=== PATIENT | male | born 1990 | race Caucasian/White ===

== ENCOUNTER 2022-05-26 05:09 | Inpatient (IN) | payer OTHER, SELFPAY ==
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
[2022-05-26 19:55] VITALS: BP 123/65; PULSE 72; TEMP 37.1
[2022-05-26] MEDS: hydrOXYzine HCL 25 MG TABLET PO (20:02)
[2022-05-26] MEDS: Prazosin HCL 1 MG CAPSULE 2 MG PO (20:55)
[2022-05-27] MEDS: buPROPion HCl XL 150 MG TAB.ER.24H PO (08:33)
[2022-05-27] MEDS: Escitalopram Oxalate 20 MG TABLET PO (08:33)
[2022-05-27] MEDS: Amphetamine Mixed Salts 10 MG TABLET 15 MG PO (08:34)
[2022-05-27 08:36] VITALS: BP 115/61; PULSE 70; RESP 18; TEMP 36.3; O2SAT 98
[2022-05-27 10:02] LABS: Estimated Average Glucose 105 mg/dL; Hemoglobin A1c % 5.3 %
[2022-05-27 10:49] LABS: Cholesterol 141 mg/dL; HDL Cholesterol 27 mg/dL; LDL Cholesterol Calculated 95 mg/dl; Magnesium 2.1 mg/dL (1.6-2.6); Thyroid Stimulating Hormone 0.49 uIU/mL (0.32-4.0); Triglycerides 99 mg/dL
[2022-05-27 11:01] LABS: Folate 6.4 ng/mL (> or = 4.0); Vitamin B12 598 pg/mL (200-900)
[2022-05-27 11:30] LABS: Free T4 (Free Thyroxine) 0.85 ng/dL (0.71-1.85)
[2022-05-27 16:50] VITALS: BP 139/79; PULSE 102; RESP 18; TEMP 36.2; O2SAT 100
--- NOTE | 2022-05-27 17:55 | HO.PSYCHPN ---
Subjective Subjective Date of Service: 05/27/22 Reason For Visit: PTSD Subjective Notes: Conditional Voluntary Healthcare Proxy: No Guardianship: No Medical Problems Affecting Mental Status: No Interim History: Raji is well organized with a list of items he would like to work on including -stepping outside of his comfort zone, -communication,-identification of feels which trigger thoughts, -new coping skills and mechanisms, - safety awareness and body language, -finding an out pt team, -endocrine HRT, --- negative self-talk, -positive self talk, -self-esteem, -grief,-jaw clenching, -finding the root of his intense emotions, -inner child healing, acceptance and empathy. Discussion of gender identity-discussed referral to [facility] for HRT and primary care along with psych care as he does not have those resources in his area-discussed with his team. Discussion of gender identity and team reaction to him-Expressed himself clearly and fully. Expressed concerns about how this was managed, felt triggered by team and anger at team response. Discussed nightmares of father and mgt of these. Discussed sx of jaw clench-this started after Lexapro-end of the day it occurs-? SE of SSRI Medication Compliance: Yes Side effects from medications: Yes (?Jaw clenching) Attending Groups: Yes Review of Systems Medical Review of Systems: unchanged Mental Status Exam Mental Status Exam Patient Appearance: Appropriate Patient Orientation: Person, Place, Time and Situation Level of Consciousness: Alert Patient Behavior: Appropriate, Talkative, Cooperative and Good Eye Contact Mood Description: Depressed and Anxious Affect Description: Flat Patient Cognition Impaired: No Ability to Follow Directions: Good Speech Pattern: Spontaneous Speech Memory Description: Intact Hallucinations: None Delusions: Not Present Perceptual Disturbances: Depersonalization and Derealization Thought Process: Intact and Goal Oriented Thought Content: positive for Intact and positive for Goal Oriented Depressive Symptoms: Increased Anxiety Judgement: Good Diagnostics Vital Signs (24Hr): Vital Signs - 24 hr 05/26/22 19:55 05/27/22 08:36 05/27/22 16:50 Temperature 98.8 F 97.3 F 97.2 F Pulse Rate 72 70 102 H Respiratory Rate 18 18 Blood Pressure 123/65 115/61 139/79 Pulse Oximetry 98 100 Oxygen Delivery Method Room Air Room Air Labs Labs: Laboratory Results - last 48 hr 05/27/22 05/27/22 05/27/22 08:25 08:25 08:25 Estimat Average Glucose 105 Hemoglobin A1c % 5.3 Magnesium 2.1 Triglycerides 99 Cholesterol 141 LDL Cholesterol, Calc 95 HDL Cholesterol 27 Vitamin B12 598 Folate 6.4 TSH 0.49 Free T4 0.85 Medications Medications Current Medications Acetaminophen (Acetaminophen 325 Mg Tablet) 650 mg PO Q6H PRN PRN Reason: Headache/Pain Mild Scale (1-3) Al Hydroxide/Mg Hydroxide (Magnesium Hydrox/Alum Hydrox 30 Ml Oral.Susp) 30 ml PO Q6H PRN PRN Reason: Heartburn/Nausea Amphetamine/Dextroamphetamine (Amphetamine Mixed Salts 10 Mg Tablet) 15 mg PO DAILY [facility] Last Admin: 05/27/22 08:34 Dose: 15 mg Bupropion HCl (Bupropion Hcl Xl 150 Mg Tab.Er.24h) 150 mg PO DAILY [facility] Last Admin: 05/27/22 08:33 Dose: 150 mg Escitalopram Oxalate (Escitalopram Oxalate 20 Mg Tablet) 20 mg PO DAILY [facility] Last Admin: 05/27/22 08:33 Dose: 20 mg Hydroxyzine HCl (Hydroxyzine Hcl 25 Mg Tablet) 25 mg PO Q6H PRN PRN Reason: Anxiety Last Admin: 05/26/22 20:02 Dose: 25 mg Magnesium Hydroxide (Milk Of Magnesia 30 Ml Oral.Susp) 30 ml PO DAILY PRN PRN Reason: Constipation Prazosin HCl (Prazosin Hcl 1 Mg Capsule) 2 mg PO BEDTIME [facility]; Protocol Last Admin: 05/26/22 20:55 Dose: 2 mg Trazodone HCl (Trazodone Hcl 50 Mg Tablet) 50 mg PO BEDTIME PRN PRN Reason: Insomnia Allergies Allergies Allergy/AdvReac Type Severity Reaction Status Date / Time No Known Allergies Allergy Verified 05/26/22 06:17 Assessment & Plan Assessment & Plan (1) ADHD: Status: Acute Code(s): F90.9 - Attention-deficit hyperactivity disorder, unspecified type (2) Post traumatic stress disorder (PTSD): Status: Acute Code(s): F43.10 - Post-traumatic stress disorder, unspecified Plan Jb is a 31 y.o. male who carries a dx of PTSD, ADHD. He presented to the [place] ED with suicidal ideation and a plan to hang himself, increased depression. Has multiple psychosocial stressors, recently moved from [place], has housing instability. Extensive trauma hx. Discloses hx of suicide attempts in adolescence. Has chronically poor sleep due to nightmares, flashbacks in the day. Plan: Continue adderall 15 mg daily, lexapro 20 mg daily (recently increased x 5 days, will monitor for benefit). Will start wellbutrin XL 150 mg daily as pt?s OP provider prescribed this last but he has not had a chance to trial it and is still interested to see if it helps with depression. Will start Prazosin 2 mg HS for chronic PTSD related nightmares. Q15 min safety checks, CV Monitor response to medications. Monitor for safety in the milieu. Discharge on stabilization. Patient seen. Chart reviewed. Discussed with team. Obtain collateral contact info?as needed 05/27/22 Benztropine prn for jaw clenching sx Seroquel prn for PTSD sx exacerbation I spent minutes with the patient and/or on the patient floor today, greater than?50% of which was spent counseling/coordinating care. Patient educated on: medication risk/benefits and therapeutic strategies Informed Consent: understands and further education needed Reason for contiued inpatient stay Substantial Risk for: inability to function and rapid decompensation
[2022-05-27] MEDS: Prazosin HCL 1 MG CAPSULE 2 MG PO (20:33)
[2022-05-27] MEDS: traZODone HCL 50 MG TABLET PO (20:33)
[2022-05-28] MEDS: buPROPion HCl XL 150 MG TAB.ER.24H PO (08:46)
[2022-05-28] MEDS: Amphetamine Mixed Salts 10 MG TABLET 15 MG PO (08:47)
[2022-05-28] MEDS: Escitalopram Oxalate 20 MG TABLET PO (09:18)
[2022-05-28 13:00] VITALS: BP 129/69; PULSE 130; TEMP 36.6
[2022-05-28] MEDS: Benztropine Mesylate 0.5 MG TABLET PO (14:54)
--- NOTE | 2022-05-28 16:25 | P.PNPSI_ITS ---
Subjective Subjective Date of Service: 05/28/22 Reason For Visit: PTSD Subjective Notes: Conditional Voluntary Healthcare Proxy: No Guardianship: No Medical Problems Affecting Mental Status: No Interim History: Spoke of his family today, relationship (5 years with partner this Wednesday), parenting (13 yo calls him on the unit on a regular basis to talk of her day and share info about home, along with process her anxiety). Also, talked of the support his colleagues have given him and of feeling he is working while here on issues and making some progress. Medication Compliance: Yes Side effects from medications: No Attending Groups: Yes Review of Systems Acute medical concerns: No Medical Review of Systems: unchanged Mental Status Exam Mental Status Exam Patient Appearance: Appropriate Patient Orientation: Person, Place, Time and Situation Level of Consciousness: Alert Patient Behavior: Appropriate, Talkative, Cooperative and Good Eye Contact Mood Description: Depressed and Anxious Affect Description: Flat Patient Cognition Impaired: No Ability to Follow Directions: Good Speech Pattern: Spontaneous Speech Memory Description: Intact Hallucinations: None Delusions: Not Present Perceptual Disturbances: Depersonalization and Derealization Thought Process: Intact and Goal Oriented Thought Content: positive for Intact and positive for Goal Oriented Depressive Symptoms: Increased Anxiety Judgement: Good Diagnostics Vital Signs (24Hr): Vital Signs - 24 hr 05/27/22 16:50 05/28/22 13:00 Temperature 97.2 F 97.8 F Pulse Rate 102 H 130 H Respiratory Rate 18 Blood Pressure 139/79 129/69 Pulse Oximetry 100 Oxygen Delivery Method Room Air Labs Labs: Laboratory Results - last 48 hr 05/27/22 05/27/22 05/27/22 08:25 08:25 08:25 Estimat Average Glucose 105 Hemoglobin A1c % 5.3 Magnesium 2.1 Triglycerides 99 Cholesterol 141 LDL Cholesterol, Calc 95 HDL Cholesterol 27 Vitamin B12 598 Folate 6.4 TSH 0.49 Free T4 0.85 Medications Medications Current Medications Acetaminophen (Acetaminophen 325 Mg Tablet) 650 mg PO Q6H PRN PRN Reason: Headache/Pain Mild Scale (1-3) Al Hydroxide/Mg Hydroxide (Magnesium Hydrox/Alum Hydrox 30 Ml Oral.Susp) 30 ml PO Q6H PRN PRN Reason: Heartburn/Nausea Amphetamine/Dextroamphetamine (Amphetamine Mixed Salts 10 Mg Tablet) 15 mg PO DAILY [facility] Last Admin: 05/28/22 08:47 Dose: 15 mg Benztropine Mesylate (Benztropine Mesylate 0.5 Mg Tablet) 0.5 mg PO 0900,1500 [facility] Last Admin: 05/28/22 14:54 Dose: 0.5 mg Bupropion HCl (Bupropion Hcl Xl 150 Mg Tab.Er.24h) 150 mg PO DAILY [facility] Last Admin: 05/28/22 08:46 Dose: 150 mg Escitalopram Oxalate (Escitalopram Oxalate 20 Mg Tablet) 20 mg PO DAILY [facility] Last Admin: 05/28/22 09:18 Dose: 20 mg Hydroxyzine HCl (Hydroxyzine Hcl 25 Mg Tablet) 25 mg PO Q6H PRN PRN Reason: Anxiety Last Admin: 05/26/22 20:02 Dose: 25 mg Magnesium Hydroxide (Milk Of Magnesia 30 Ml Oral.Susp) 30 ml PO DAILY PRN PRN Reason: Constipation Melatonin (Melatonin 3 Mg Tablet) 3 mg PO BEDTIME PRN PRN Reason: insomnia Prazosin HCl (Prazosin Hcl 1 Mg Capsule) 2 mg PO BEDTIME [facility]; Protocol Last Admin: 05/27/22 20:33 Dose: 2 mg Quetiapine Fumarate (Quetiapine Fumarate 25 Mg Tablet) 25 mg PO BID [facility] Trazodone HCl (Trazodone Hcl 25 Mg Halftab) 25 mg PO BEDTIME PRN PRN Reason: Insomnia Allergies Allergies Allergy/AdvReac Type Severity Reaction Status Date / Time No Known Allergies Allergy Verified 05/26/22 06:17 Assessment & Plan Assessment & Plan (1) ADHD: Status: Acute Code(s): F90.9 - Attention-deficit hyperactivity disorder, unspecified type (2) Post traumatic stress disorder (PTSD): Status: Acute Code(s): F43.10 - Post-traumatic stress disorder, unspecified Plan Jb is a 31 y.o. male who carries a dx of PTSD, ADHD. He presented to the [facility] ED with suicidal ideation and a plan to hang himself, increased depression. Has multiple psychosocial stressors, recently moved from [place], has housing instability. Extensive trauma hx. Discloses hx of suicide attempts in adolescence. Has chronically poor sleep due to nightmares, flashbacks in the day. Plan: Continue adderall 15 mg daily, lexapro 20 mg daily (recently increased x 5 days, will monitor for benefit). Will start wellbutrin XL 150 mg daily as pt?s OP provider prescribed this last but he has not had a chance to trial it and is still interested to see if it helps with depression. Will start Prazosin 2 mg HS for chronic PTSD related nightmares. Q15 min safety checks, CV Monitor response to medications. Monitor for safety in the milieu. Discharge on stabilization. Patient seen. Chart reviewed. Discussed with team. Obtain collateral contact info?as needed 05/27/22 Benztropine prn for jaw clenching sx Seroquel prn for PTSD sx exacerbation 05/28/22 Seroquel changed to scheduled bid for trial for sx mgt-PTSD, Anxiety. I spent minutes with the patient and/or on the patient floor today, greater than?50% of which was spent counseling/coordinating care. Patient educated on: therapeutic strategies Informed Consent: understands Reason for contiued inpatient stay Substantial Risk for: rapid decompensation
[2022-05-28 18:00] VITALS: BP 122/78; PULSE 78; RESP 16; TEMP 36; O2SAT 98
[2022-05-28] MEDS: Prazosin HCL 1 MG CAPSULE 2 MG PO (19:27)
[2022-05-28] MEDS: QUEtiapine Fumarate 25 MG TABLET PO (19:27)
[2022-05-28] MEDS: Melatonin 3 MG TABLET PO (20:37)
[2022-05-29 06:00] VITALS: BP 129/70; PULSE 87; TEMP 37.3
[2022-05-29] MEDS: Amphetamine Mixed Salts 10 MG TABLET 15 MG PO (08:48)
[2022-05-29] MEDS: QUEtiapine Fumarate 25 MG TABLET PO ×2 (08:49→20:07)
[2022-05-29] MEDS: Escitalopram Oxalate 20 MG TABLET PO (08:49)
[2022-05-29] MEDS: Benztropine Mesylate 0.5 MG TABLET PO ×2 (08:49→14:02)
[2022-05-29] MEDS: buPROPion HCl XL 150 MG TAB.ER.24H PO (08:49)
--- NOTE | 2022-05-29 16:03 | HO.PSYCHPN ---
Subjective Subjective Date of Service: 05/29/22 Reason For Visit: PTSD Subjective Notes: Conditional Voluntary Healthcare Proxy: No Guardianship: No Medical Problems Affecting Mental Status: No Interim History: Reports feeling strange upon awakening-with a marked decrease in anxiety and depression-reports feeling improved. Slept with Seroquel. Wanting to keep dosage the same-may need to decrease. Fifth anniversary on 05/30. Medication Compliance: Yes Side effects from medications: No Attending Groups: No Review of Systems Acute medical concerns: No Medical Review of Systems: unchanged Mental Status Exam Mental Status Exam Patient Appearance: Appropriate Patient Orientation: Person, Place, Time and Situation Level of Consciousness: Alert Patient Behavior: Appropriate, Talkative, Cooperative and Good Eye Contact Mood Description: Depressed and Anxious Affect Description: Flat Patient Cognition Impaired: No Ability to Follow Directions: Good Speech Pattern: Spontaneous Speech Memory Description: Intact Hallucinations: None Delusions: Not Present Perceptual Disturbances: Depersonalization and Derealization Thought Process: Intact and Goal Oriented Thought Content: positive for Intact and positive for Goal Oriented Depressive Symptoms: Increased Anxiety Judgement: Good Diagnostics Vital Signs (24Hr): Vital Signs - 24 hr 05/28/22 18:00 05/29/22 06:00 Temperature 96.8 F 99.2 F Pulse Rate 78 87 Respiratory Rate 16 Blood Pressure 122/78 129/70 Pulse Oximetry 98 Oxygen Delivery Method Room Air Medications Medications Current Medications Acetaminophen (Acetaminophen 325 Mg Tablet) 650 mg PO Q6H PRN PRN Reason: Headache/Pain Mild Scale (1-3) Al Hydroxide/Mg Hydroxide (Magnesium Hydrox/Alum Hydrox 30 Ml Oral.Susp) 30 ml PO Q6H PRN PRN Reason: Heartburn/Nausea Amphetamine/Dextroamphetamine (Amphetamine Mixed Salts 10 Mg Tablet) 15 mg PO DAILY [facility] Last Admin: 05/29/22 08:48 Dose: 15 mg Benztropine Mesylate (Benztropine Mesylate 0.5 Mg Tablet) 0.5 mg PO 0900,1500 [facility] Last Admin: 05/29/22 14:02 Dose: 0.5 mg Bupropion HCl (Bupropion Hcl Xl 150 Mg Tab.Er.24h) 150 mg PO DAILY [facility] Last Admin: 05/29/22 08:49 Dose: 150 mg Escitalopram Oxalate (Escitalopram Oxalate 20 Mg Tablet) 20 mg PO DAILY [facility] Last Admin: 05/29/22 08:49 Dose: 20 mg Hydroxyzine HCl (Hydroxyzine Hcl 25 Mg Tablet) 25 mg PO Q6H PRN PRN Reason: Anxiety Last Admin: 05/26/22 20:02 Dose: 25 mg Magnesium Hydroxide (Milk Of Magnesia 30 Ml Oral.Susp) 30 ml PO DAILY PRN PRN Reason: Constipation Melatonin (Melatonin 3 Mg Tablet) 3 mg PO BEDTIME PRN PRN Reason: insomnia Last Admin: 05/28/22 20:37 Dose: 3 mg Prazosin HCl (Prazosin Hcl 1 Mg Capsule) 2 mg PO BEDTIME [facility]; Protocol Last Admin: 05/28/22 19:27 Dose: 2 mg Quetiapine Fumarate (Quetiapine Fumarate 25 Mg Tablet) 25 mg PO BID [facility] Last Admin: 05/29/22 08:49 Dose: 25 mg Trazodone HCl (Trazodone Hcl 25 Mg Halftab) 25 mg PO BEDTIME PRN PRN Reason: Insomnia Allergies Allergies Allergy/AdvReac Type Severity Reaction Status Date / Time No Known Allergies Allergy Verified 05/26/22 06:17 Assessment & Plan Assessment & Plan (1) ADHD: Status: Acute Code(s): F90.9 - Attention-deficit hyperactivity disorder, unspecified type (2) Post traumatic stress disorder (PTSD): Status: Acute Code(s): F43.10 - Post-traumatic stress disorder, unspecified Plan Jb is a 31 y.o. male who carries a dx of PTSD, ADHD. He presented to the [place] ED with suicidal ideation and a plan to hang himself, increased depression. Has multiple psychosocial stressors, recently moved from [place], has housing instability. Extensive trauma hx. Discloses hx of suicide attempts in adolescence. Has chronically poor sleep due to nightmares, flashbacks in the day. Plan: Continue adderall 15 mg daily, lexapro 20 mg daily (recently increased x 5 days, will monitor for benefit). Will start wellbutrin XL 150 mg daily as pt?s OP provider prescribed this last but he has not had a chance to trial it and is still interested to see if it helps with depression. Will start Prazosin 2 mg HS for chronic PTSD related nightmares. Q15 min safety checks, CV Monitor response to medications. Monitor for safety in the milieu. Discharge on stabilization. Patient seen. Chart reviewed. Discussed with team. Obtain collateral contact info?as needed 05/27/22 Benztropine prn for jaw clenching sx Seroquel prn for PTSD sx exacerbation 05/28/22 Seroquel changed to scheduled bid for trial for sx mgt-PTSD, Anxiety. 05/29/22 Reports symptom improvement. Continue current plan of care. I spent minutes with the patient and/or on the patient floor today, greater than?50% of which was spent counseling/coordinating care. Patient educated on: medication risk/benefits and therapeutic strategies Informed Consent: understands Reason for contiued inpatient stay Substantial Risk for: rapid decompensation
[2022-05-29 19:55] VITALS: BP 126/67; PULSE 109; TEMP 36.8
[2022-05-29] MEDS: Prazosin HCL 1 MG CAPSULE 2 MG PO (20:08)
[2022-05-30 08:00] VITALS: BP 119/57; PULSE 78; TEMP 36.2
[2022-05-30] MEDS: QUEtiapine Fumarate 25 MG TABLET PO ×2 (08:41→21:26)
[2022-05-30] MEDS: Benztropine Mesylate 0.5 MG TABLET PO ×2 (08:41→14:59)
[2022-05-30] MEDS: Escitalopram Oxalate 20 MG TABLET PO (08:41)
[2022-05-30] MEDS: buPROPion HCl XL 150 MG TAB.ER.24H PO (08:42)
[2022-05-30] MEDS: Amphetamine Mixed Salts 10 MG TABLET 15 MG PO (08:42)
--- NOTE | 2022-05-30 09:15 | P.PNPSI_ITS ---
Subjective Subjective Date of Service: 05/30/22 Reason For Visit: PTSD Subjective Notes: Conditional Voluntary Interim History: Patient was seen and discussed in rounds today. Records, labs and plans were reviewed. He continues to be somewhat anxious but feeling better. He is more visible. He denies any complaints or side effects. He talked about his wed anniversary which is today. He is working on coping skills. Eating and sleeping adequately. No changes were made today Diagnostics Vital Signs (24Hr): Vital Signs - 24 hr 05/29/22 19:55 Temperature 98.2 F Pulse Rate 109 H Blood Pressure 126/67 Medications Medications Current Medications Acetaminophen (Acetaminophen 325 Mg Tablet) 650 mg PO Q6H PRN PRN Reason: Headache/Pain Mild Scale (1-3) Al Hydroxide/Mg Hydroxide (Magnesium Hydrox/Alum Hydrox 30 Ml Oral.Susp) 30 ml PO Q6H PRN PRN Reason: Heartburn/Nausea Amphetamine/Dextroamphetamine (Amphetamine Mixed Salts 10 Mg Tablet) 15 mg PO DAILY [facility] Last Admin: 05/30/22 08:42 Dose: 15 mg Benztropine Mesylate (Benztropine Mesylate 0.5 Mg Tablet) 0.5 mg PO 0900,1500 [facility] Last Admin: 05/30/22 08:41 Dose: 0.5 mg Bupropion HCl (Bupropion Hcl Xl 150 Mg Tab.Er.24h) 150 mg PO DAILY [facility] Last Admin: 05/30/22 08:42 Dose: 150 mg Escitalopram Oxalate (Escitalopram Oxalate 20 Mg Tablet) 20 mg PO DAILY [facility] Last Admin: 05/30/22 08:41 Dose: 20 mg Hydroxyzine HCl (Hydroxyzine Hcl 25 Mg Tablet) 25 mg PO Q6H PRN PRN Reason: Anxiety Last Admin: 05/26/22 20:02 Dose: 25 mg Magnesium Hydroxide (Milk Of Magnesia 30 Ml Oral.Susp) 30 ml PO DAILY PRN PRN Reason: Constipation Melatonin (Melatonin 3 Mg Tablet) 3 mg PO BEDTIME PRN PRN Reason: insomnia Last Admin: 05/28/22 20:37 Dose: 3 mg Prazosin HCl (Prazosin Hcl 1 Mg Capsule) 2 mg PO BEDTIME [facility]; Protocol Last Admin: 05/29/22 20:08 Dose: 2 mg Quetiapine Fumarate (Quetiapine Fumarate 25 Mg Tablet) 25 mg PO BID [facility] Last Admin: 05/30/22 08:41 Dose: 25 mg Trazodone HCl (Trazodone Hcl 25 Mg Halftab) 25 mg PO BEDTIME PRN PRN Reason: Insomnia Allergies Allergies Allergy/AdvReac Type Severity Reaction Status Date / Time No Known Allergies Allergy Verified 05/26/22 06:17 Assessment & Plan Assessment & Plan (1) ADHD: Status: Acute Code(s): F90.9 - Attention-deficit hyperactivity disorder, unspecified type (2) Post traumatic stress disorder (PTSD): Status: Acute Code(s): F43.10 - Post-traumatic stress disorder, unspecified Plan Jb is a 31 y.o. male who carries a dx of PTSD, ADHD. He presented to the [place] ED with suicidal ideation and a plan to hang himself, increased depression. Has multiple psychosocial stressors, recently moved from [place], has housing instability. Extensive trauma hx. Discloses hx of suicide attempts in adolescence. Has chronically poor sleep due to nightmares, flashbacks in the day. Plan: Continue adderall 15 mg daily, lexapro 20 mg daily (recently increased x 5 days, will monitor for benefit). Will start wellbutrin XL 150 mg daily as pt?s OP provider prescribed this last but he has not had a chance to trial it and is still interested to see if it helps with depression. Will start Prazosin 2 mg HS for chronic PTSD related nightmares. Q15 min safety checks, CV Monitor response to medications. Monitor for safety in the milieu. Discharge on stabilization. Patient seen. Chart reviewed. Discussed with team. Obtain collateral contact info?as needed 05/27/22 Benztropine prn for jaw clenching sx Seroquel prn for PTSD sx exacerbation 05/28/22 Seroquel changed to scheduled bid for trial for sx mgt-PTSD, Anxiety. 05/29/22 Reports symptom improvement. Continue current plan of care. 05/30: Continue current regimen and plans I spent minutes with the patient and/or on the patient floor today, greater than?50% of which was spent counseling/coordinating care. Reason for contiued inpatient stay Substantial Risk for: med/psych decompensation
[2022-05-30 21:00] VITALS: BP 128/66; PULSE 81; TEMP 36.3
[2022-05-30] MEDS: Prazosin HCL 1 MG CAPSULE 2 MG PO (21:26)
[2022-05-31 08:00] VITALS: BP 108/59; PULSE 65; TEMP 36.9; O2SAT 99
[2022-05-31] MEDS: Amphetamine Mixed Salts 10 MG TABLET 15 MG PO (08:14)
[2022-05-31] MEDS: Escitalopram Oxalate 20 MG TABLET PO (08:14)
[2022-05-31] MEDS: QUEtiapine Fumarate 25 MG TABLET PO ×2 (08:15→20:48)
[2022-05-31] MEDS: Benztropine Mesylate 0.5 MG TABLET PO ×2 (08:15→14:10)
[2022-05-31] MEDS: buPROPion HCl XL 150 MG TAB.ER.24H PO (08:15)
--- NOTE | 2022-05-31 08:16 | P.PNPSI_ITS ---
Subjective Subjective Date of Service: 05/30/22 Reason For Visit: PTSD Subjective Notes: Conditional Voluntary Interim History: Patient was seen and discussed in rounds today. Records, labs and plans were reviewed. He has been stable and is doing fairly well. He has been visible, sleeping better. Is safe with no SI. He is waiting housing arrangements although he may end up going home before that has been secured. No complaints or side effects. No changes were made today Medication Compliance: Yes Side effects from medications: No Attending Groups: Yes Mental Status Exam Mental Status Exam Patient Appearance: Appropriate Patient Orientation: Person, Place, Time and Situation Level of Consciousness: Alert Patient Behavior: Appropriate, Talkative, Cooperative and Good Eye Contact Mood Description: Depressed and Anxious Affect Description: Flat Patient Cognition Impaired: No Ability to Follow Directions: Good Speech Pattern: Spontaneous Speech Memory Description: Intact Hallucinations: None Delusions: Not Present Perceptual Disturbances: Depersonalization and Derealization Thought Process: Intact and Goal Oriented Thought Content: positive for Intact and positive for Goal Oriented Depressive Symptoms: Increased Anxiety Judgement: Good Diagnostics Vital Signs (24Hr): Vital Signs - 24 hr 05/30/22 21:00 Temperature 97.3 F Pulse Rate 81 Blood Pressure 128/66 Medications Medications Current Medications Acetaminophen (Acetaminophen 325 Mg Tablet) 650 mg PO Q6H PRN PRN Reason: Headache/Pain Mild Scale (1-3) Al Hydroxide/Mg Hydroxide (Magnesium Hydrox/Alum Hydrox 30 Ml Oral.Susp) 30 ml PO Q6H PRN PRN Reason: Heartburn/Nausea Amphetamine/Dextroamphetamine (Amphetamine Mixed Salts 10 Mg Tablet) 15 mg PO DAILY [facility] Last Admin: 05/30/22 08:42 Dose: 15 mg Benztropine Mesylate (Benztropine Mesylate 0.5 Mg Tablet) 0.5 mg PO 0900,1500 [facility] Last Admin: 05/30/22 14:59 Dose: 0.5 mg Bupropion HCl (Bupropion Hcl Xl 150 Mg Tab.Er.24h) 150 mg PO DAILY [facility] Last Admin: 05/30/22 08:42 Dose: 150 mg Escitalopram Oxalate (Escitalopram Oxalate 20 Mg Tablet) 20 mg PO DAILY [facility] Last Admin: 05/30/22 08:41 Dose: 20 mg Hydroxyzine HCl (Hydroxyzine Hcl 25 Mg Tablet) 25 mg PO Q6H PRN PRN Reason: Anxiety Last Admin: 05/26/22 20:02 Dose: 25 mg Magnesium Hydroxide (Milk Of Magnesia 30 Ml Oral.Susp) 30 ml PO DAILY PRN PRN Reason: Constipation Melatonin (Melatonin 3 Mg Tablet) 3 mg PO BEDTIME PRN PRN Reason: insomnia Last Admin: 05/28/22 20:37 Dose: 3 mg Prazosin HCl (Prazosin Hcl 1 Mg Capsule) 2 mg PO BEDTIME [facility]; Protocol Last Admin: 05/30/22 21:26 Dose: 2 mg Quetiapine Fumarate (Quetiapine Fumarate 25 Mg Tablet) 25 mg PO BID [facility] Last Admin: 05/30/22 21:26 Dose: 25 mg Trazodone HCl (Trazodone Hcl 25 Mg Halftab) 25 mg PO BEDTIME PRN PRN Reason: Insomnia Allergies Allergies Allergy/AdvReac Type Severity Reaction Status Date / Time No Known Allergies Allergy Verified 05/26/22 06:17 Assessment & Plan Assessment & Plan (1) ADHD: Status: Acute Code(s): F90.9 - Attention-deficit hyperactivity disorder, unspecified type (2) Post traumatic stress disorder (PTSD): Status: Acute Code(s): F43.10 - Post-traumatic stress disorder, unspecified Plan Jb is a 31 y.o. male who carries a dx of PTSD, ADHD. He presented to the [place] [facility] ED with suicidal ideation and a plan to hang himself, increased depression. Has multiple psychosocial stressors, recently moved from [place], has housing instability. Extensive trauma hx. Discloses hx of suicide attempts in adolescence. Has chronically poor sleep due to nightmares, flashbacks in the day. Plan: Continue adderall 15 mg daily, lexapro 20 mg daily (recently increased x 5 days, will monitor for benefit). Will start wellbutrin XL 150 mg daily as pt?s OP provider prescribed this last but he has not had a chance to trial it and is still interested to see if it helps with depression. Will start Prazosin 2 mg HS for chronic PTSD related nightmares. Q15 min safety checks, CV Monitor response to medications. Monitor for safety in the milieu. Discharge on stabilization. Patient seen. Chart reviewed. Discussed with team. Obtain collateral contact info?as needed 05/27/22 Benztropine prn for jaw clenching sx Seroquel prn for PTSD sx exacerbation 05/28/22 Seroquel changed to scheduled bid for trial for sx mgt-PTSD, Anxiety. 05/29/22 Reports symptom improvement. Continue current plan of care. 05/30: Continue current regimen and plans 05/31: Continue current plans and regimen I spent minutes with the patient and/or on the patient floor today, greater than?50% of which was spent counseling/coordinating care. Reason for contiued inpatient stay Substantial Risk for: other
[2022-05-31 20:40] VITALS: BP 113/67; PULSE 85; TEMP 36.7
[2022-05-31] MEDS: Prazosin HCL 1 MG CAPSULE 2 MG PO (20:49)
[2022-06-01] MEDS: Acetaminophen 325 MG TABLET 650 MG PO ×2 (00:10→17:00)
[2022-06-01 06:00] VITALS: BP 105/55; PULSE 64; RESP 18; TEMP 36.4; O2SAT 100
[2022-06-01] MEDS: Amphetamine Mixed Salts 10 MG TABLET 15 MG PO (08:59)
[2022-06-01] MEDS: buPROPion HCl XL 150 MG TAB.ER.24H PO (08:59)
[2022-06-01] MEDS: QUEtiapine Fumarate 25 MG TABLET PO ×2 (08:59→20:26)
[2022-06-01] MEDS: Escitalopram Oxalate 20 MG TABLET PO (08:59)
[2022-06-01] MEDS: Benztropine Mesylate 0.5 MG TABLET PO ×2 (08:59→15:02)
--- NOTE | 2022-06-01 17:25 | P.PNPSI_ITS ---
Subjective Subjective Date of Service: 06/01/22 Reason For Visit: PTSD Subjective Notes: Conditional Voluntary Healthcare Proxy: No Guardianship: No Medical Problems Affecting Mental Status: No Interim History: Reports feeling [id number]; anxiety-1. Reports regime to be tolerated and effective. Not feeling overmedicated. Planning discharge 06/02/22 and will return to work this week. Will meet with [facility] on 06/10. Discussed Melatonin- states room-mate tells him that when he takes it he talks in his sleep and recalls wierd dreams of himself when he was a teen. Medication Compliance: Yes Side effects from medications: No Attending Groups: Yes Review of Systems Acute medical concerns: No Medical Review of Systems: unchanged Mental Status Exam Mental Status Exam Patient Appearance: Appropriate Patient Orientation: Person, Place, Time and Situation Level of Consciousness: Alert Patient Behavior: Talkative and Good Eye Contact Mood Description: Appropriate Affect Description: Appropriate Patient Cognition Impaired: No Ability to Follow Directions: Good Speech Pattern: Spontaneous Speech Memory Description: Intact Hallucinations: None Delusions: Not Present Thought Process: Intact and Goal Oriented Thought Content: positive for Intact and positive for Goal Oriented Judgement: Good Diagnostics Vital Signs (24Hr): Vital Signs - 24 hr 05/31/22 20:40 06/01/22 06:00 Temperature 98.1 F 97.6 F Pulse Rate 85 64 Respiratory Rate 18 Blood Pressure 113/67 105/55 L Pulse Oximetry 100 Oxygen Delivery Method Room Air Medications Medications Current Medications Acetaminophen (Acetaminophen 325 Mg Tablet) 650 mg PO Q6H PRN PRN Reason: Headache/Pain Mild Scale (1-3) Last Admin: 06/01/22 17:00 Dose: 650 mg Al Hydroxide/Mg Hydroxide (Magnesium Hydrox/Alum Hydrox 30 Ml Oral.Susp) 30 ml PO Q6H PRN PRN Reason: Heartburn/Nausea Amphetamine/Dextroamphetamine (Amphetamine Mixed Salts 10 Mg Tablet) 15 mg PO DAILY [facility] Last Admin: 06/01/22 08:59 Dose: 15 mg Benztropine Mesylate (Benztropine Mesylate 0.5 Mg Tablet) 0.5 mg PO 0900,1500 [facility] Last Admin: 06/01/22 15:02 Dose: 0.5 mg Bupropion HCl (Bupropion Hcl Xl 150 Mg Tab.Er.24h) 150 mg PO DAILY [facility] Last Admin: 06/01/22 08:59 Dose: 150 mg Escitalopram Oxalate (Escitalopram Oxalate 20 Mg Tablet) 20 mg PO DAILY [facility] Last Admin: 06/01/22 08:59 Dose: 20 mg Hydroxyzine HCl (Hydroxyzine Hcl 25 Mg Tablet) 25 mg PO Q6H PRN PRN Reason: Anxiety Last Admin: 05/26/22 20:02 Dose: 25 mg Magnesium Hydroxide (Milk Of Magnesia 30 Ml Oral.Susp) 30 ml PO DAILY PRN PRN Reason: Constipation Melatonin (Melatonin 3 Mg Tablet) 3 mg PO BEDTIME PRN PRN Reason: insomnia Last Admin: 05/28/22 20:37 Dose: 3 mg Prazosin HCl (Prazosin Hcl 1 Mg Capsule) 2 mg PO BEDTIME [facility]; Protocol Last Admin: 05/31/22 20:49 Dose: 2 mg Quetiapine Fumarate (Quetiapine Fumarate 25 Mg Tablet) 25 mg PO BID [facility] Last Admin: 06/01/22 08:59 Dose: 25 mg Trazodone HCl (Trazodone Hcl 25 Mg Halftab) 25 mg PO BEDTIME PRN PRN Reason: Insomnia Allergies Allergies Allergy/AdvReac Type Severity Reaction Status Date / Time No Known Allergies Allergy Verified 05/26/22 06:17 Assessment & Plan Assessment & Plan (1) ADHD: Status: Acute Code(s): F90.9 - Attention-deficit hyperactivity disorder, unspecified type (2) Post traumatic stress disorder (PTSD): Status: Acute Code(s): F43.10 - Post-traumatic stress disorder, unspecified Plan Jb is a 31 y.o. male who carries a dx of PTSD, ADHD. He presented to the [facility] ED with suicidal ideation and a plan to hang himself, increased depr ession. Has multiple psychosocial stressors, recently moved from [place], has housing instability. Extensive trauma hx. Discloses hx of suicide attempts in adolescence. Has chronically poor sleep due to nightmares, flashbacks in the day. Plan: Continue adderall 15 mg daily, lexapro 20 mg daily (recently increased x 5 days, will monitor for benefit). Will start wellbutrin XL 150 mg daily as pt?s OP provider prescribed this last but he has not had a chance to trial it and is still interested to see if it helps with depression. Will start Prazosin 2 mg HS for chronic PTSD related nightmares. Q15 min safety checks, CV Monitor response to medications. Monitor for safety in the milieu. Discharge on stabilization. Patient seen. Chart reviewed. Discussed with team. Obtain collateral contact info?as needed 05/27/22 Benztropine prn for jaw clenching sx Seroquel prn for PTSD sx exacerbation 05/28/22 Seroquel changed to scheduled bid for trial for sx mgt-PTSD, Anxiety. 05/29/22 Reports symptom improvement. Continue current plan of care. 05/30: Continue current regimen and plans 05/31: Continue current plans and regimen 06/01/22: Discharge scheduled for 06/02/22. Continue current regime. I spent minutes with the patient and/or on the patient floor today, greater than?50% of which was spent counseling/coordinating care. Patient educated on: medication risk/benefits and therapeutic strategies Informed Consent: understands Reason for contiued inpatient stay Substantial Risk for: stable for discharge
[2022-06-01 20:26] VITALS: BP 136/68; PULSE 101
[2022-06-01] MEDS: Prazosin HCL 1 MG CAPSULE 2 MG PO (20:26)
[2022-06-02 07:40] VITALS: BP 117/69; PULSE 77; TEMP 36.2; O2SAT 100
[2022-06-02] MEDS: QUEtiapine Fumarate 25 MG TABLET PO (08:43)
[2022-06-02] MEDS: Escitalopram Oxalate 20 MG TABLET PO (08:43)
[2022-06-02] MEDS: Benztropine Mesylate 0.5 MG TABLET PO (08:43)
[2022-06-02] MEDS: buPROPion HCl XL 150 MG TAB.ER.24H PO (08:43)
[2022-06-02] MEDS: Amphetamine Mixed Salts 10 MG TABLET 15 MG PO (08:43)
--- NOTE | 2022-06-02 20:04 | P.DS_ITS ---
DS: Providers Provider Date of Service: 06/02/22 Date of admission: 05/26/22 05:09 Date of discharge: 06/02/22 Primary care physician: Unknown Physician Admitting clinician: Amarilis Del Toro Attending physician on admission: Israel Cruz Consults: 05/26/22 06:17 Consult to Hospitalist Routine Consulting Provider: Hospitalist Reason For Exam: new admit from [place] Attending physician on discharge: Israel Cruz Discharging clinician: Chantal Simpson DS: Diagnosis Discharge Diagnosis (1) ADHD: Status: Acute (2) Post traumatic stress disorder (PTSD): Status: Acute DS: Medications Discharge Medications Home Medications: Previous Rx's Medication Instructions Recorded benztropine 0.5 mg tablet 0.5 mg PO 0900,1500 #60 tabs 06/01/22 bupropion HCl 150 mg 24 hr tablet, 150 mg PO DAILY #30 tabs 06/01/22 extended release dextroamphetamine-amphetamine 10 15 mg PO DAILY #30 tabs 06/01/22 mg tablet escitalopram oxalate 20 mg tablet 20 mg PO DAILY #30 tabs 06/01/22 melatonin 3 mg tablet 3 mg PO BEDTIME PRN insomnia #30 06/01/22 tabs prazosin 1 mg capsule 2 mg PO BEDTIME #30 caps 06/01/22 quetiapine 25 mg tablet 25 mg PO BID #60 tabs 06/01/22 Mental Status Exam Mental Status Exam Patient Appearance: Appropriate Patient Orientation: Person, Place, Time and Situation Level of Consciousness: Alert Patient Behavior: Talkative and Good Eye Contact Mood Description: Appropriate Affect Description: Appropriate Patient Cognition Impaired: No Ability to Follow Directions: Good Speech Pattern: Spontaneous Speech Memory Description: Intact Hallucinations: None Delusions: Not Present Thought Process: Intact and Goal Oriented Thought Content: positive for Intact and positive for Goal Oriented Judgement: Good Data Data Completed and Pending Completed studies during hospitalization [Text1]: 05/27/22 05/27/22 05/27/22 08:25 08:25 08:25 Estimat Average Glucose 105 Hemoglobin A1c % 5.3 Magnesium 2.1 Triglycerides 99 Cholesterol 141 LDL Cholesterol, Calc 95 HDL Cholesterol 27 Vitamin B12 598 Folate 6.4 TSH 0.49 Free T4 0.85 DS: Summary Hospital Course Hospital Course: Admission to adult psychiatry for exacerbation of symptoms of severe recurrent major depression, PTSD, ADHD. Medications were adjusted and pt found relief on a combination of Bupropion, Escitalopram, Adderall, Seroquel, Prazosin, Melatonin and Benztropine. Local referrals were made as pt does not have resources in the area where he lives, hoping for improved out patient outcomes and prevention of need for repeated in patient care. Time spent discussing smoking cessation with patient: 3 to 10 minutes Status at Discharge Functional status at discharge: independent ambulation Overall status at discharge: patient is progressing back to baseline Time Spent with Patient Time attestation: Total time spent providing and/or coordinating discharge services: 40 Time spent: Greater than 30 minutes Discharge Plan Discharge Anticipated Discharge Date/Time: 06/02/22 12:01 Patient Disposition: Home, Self-Care Discharge Diagnosis: PTSD Depression, Recurrent Major, Severe ADHD Referrals: New Patient Appointment ([facility]) [Other] - 06/10/22 2:30 pm (New patient appointment for HRT on June 10 at 2:30pm, 06/10/22 IN PERSON ) [facility] REGISTERED NURSING PROFESSOR , Intake [Other] - 06/09/22 10:00 am (Intake appointment, In-person, with [facility]. *Following this appointment REGISTERED NURSING PROFESSOR will set up a medication & therapy appointment ) Irene Driscoll FNP-C [Nurse Practitioner] - 1 Week Physician,Lee Ann J [Primary Care Provider] - 1 Week Discharge Medications: New quetiapine 25 mg Tablet 25 mg PO BID Qty: 60 0RF benztropine 0.5 mg Tablet 0.5 mg PO 0900,1500 Qty: 60 0RF prazosin 1 mg Capsule 2 mg PO BEDTIME Qty: 30 0RF Protocol: Hold for SBP< HOLD for SBP < : 90 dextroamphetamine-amphetamine 10 mg Tablet 15 mg PO DAILY Qty: 30 0RF Rx Instructions: Partial Fill upon patient request. melatonin 3 mg Tablet 3 mg PO BEDTIME PRN (Reason: insomnia) Qty: 30 0RF escitalopram oxalate 20 mg Tablet 20 mg PO DAILY Qty: 30 0RF bupropion HCl 150 mg Tablet Extended Release 24 Hr 150 mg PO DAILY Qty: 30 0RF Discharge Orders: Discharge Order (Routine); Ordered 06/01/22 Ordered By: Chantal Simpson Diet: Advance to usual diet Activity on Discharge: As tolerated Stand Alone Forms: Patient Portal Discharge page, Community Support Care Plan Goals: Maintain mood and safe behaviors Take medications as directed Practice coping skills Connect with out patient providers Health Concerns: Stable mood and behaviors Plan of Treatment: Follow up with out patient providers Take medications as directed Assessment: Pt interviewed prior to discharge and found to be fully oriented and without SI/HI. Pt has insight and demonstrates good judgment in terms of wanting to pursue treatment. Pt is not an immenent risk of harm to self or others and has a safety plan that includes presenting to the closest ER or calling 911 if feeling unsafe. Pt has been observed closely by nursing and unit staff throughout admission. Pt has not engaged in any behaviors that suggest dangerousness to self or others and has demonstrated appropriate behaviors and impulse control. Discharge Date/Time: 06/02/22 12:13
== END 2022-06-02 12:13 | disposition home or self-care (01) | DRG 751 ==
PROVIDERS: Registered Nurse; Admitting Provider Psychiatry & Neurology Psychiatry; Visit Provider Clinical Nurse Specialist Psychiatric/Mental Health, Adult
DX: F33.2 Major depressive disorder, recurrent severe without psychotic features (principal); R45.851 Suicidal ideations; F43.10 Post-traumatic stress disorder, unspecified; F90.9 Attention-deficit hyperactivity disorder, unspecified type; M25.561 Pain in right knee; F17.210 Nicotine dependence, cigarettes, uncomplicated; Z71.6 Tobacco abuse counseling; Z79.899 Other long term (current) drug therapy
CPT/HCPCS: 36415; 80061; 82607; 82746; 83036; 83735; 84439; 84443; 90792